=== PATIENT | male | born 1965 | race Caucasian/White ===

== ENCOUNTER 2016-09-09 08:08 | Outpatient (CLI) | payer BC ==
[2016-09-09 09:22] LABS: eGFR (African) > 60; eGFR (Non-African) > 60
--- NOTE | 2016-09-09 14:28 | Diagnostic Imaging Report ---
[facility] [address] [facility].[address] [address] Report Submission Date: Sep 09, 2016 10:24:24 AM CDT Patient Study Name: SAHIL OCLEY Date: Sep 09, 2016 8:19:47 AM CDT Modality Type: US Gender: M Description: DPLX SCN XTRCRAN ART CMP NICHOLAS : 65 Institution: [facility] Physician JON LUONG Ultrasound carotid Doppler HISTORY: Carotid bruit, hypertension, hyperlipidemia FINDINGS: Spectral Doppler sonography of the carotid and vertebral arteries is performed. On the right there is antegrade carotid and vertebral artery flow without visibly significant carotid atheromatous plaque. Doppler waveforms are normal in the right carotid and vertebral arteries. On the left there is also antegrade carotid and vertebral artery flow without visibly significant carotid plaque. Doppler waveforms are normal. Peak systolic velocities in the internal carotid arteries are 66 centimeters/ second right and 64 left. Peak common carotid artery systolic velocities are 116 centimeters/second right and 107 left. Internal to common carotid artery ratios are 0.6 right and left. IMPRESSION: Using the 2003 radiologists in ultrasound consensus Conference criteria, there is no evidence of carotid stenosis. Antegrade vertebral artery flow. Electronically signed on Sep 09, 2016 10:24:24 AM CDT by: Magdiel ARMENTA
== END 2016-09-09 08:10 ==
LOC: RAD 08:08
PROVIDERS: ATTEND Family Medicine
DX: E78.5 Hyperlipidemia, unspecified (principal); R09.89 Other specified symptoms and signs involving the circulatory and respiratory systems
CPT/HCPCS: 36415; 80053; 80061; 93880

== ENCOUNTER 2018-06-21 20:08 | Emergency (ER) | payer BC ==
--- NOTE | 2018-06-21 21:38 | ED Physician Documentation ---
General Adult - HISTORIAN Historian: patient - HPI Stated Complaint: High Blood Pressure- Anxiety Chief Complaint: General Adult Additional Information: Patient is a 52-year-old male that arrives to ER with his with c/o high b lood pressure and anxiety. Patient states he use to be treated for hypertension but he quit taking his medication because he did not like the way it made him feel. When he switched providers his blood pressures had been WNL so he was not put back on them. Over the last week he has felt some anxiety at work- he states that he is able to control it on his own by breathing and talking to himself in the mirror. Patient and his were at [facility] this evening and he checked his blood pressure and it read > 150s/ >100 diastolic. states that pt became very anxious and kept checking blood pressure every couple of minutes and does the same thing at home. On arrival patients blood pressure was normal and his anxiety was gone. Educated patient to only check blood pressure once a day- keep a log- and schedule appointment with PCP next week (take log and blood pressure cuff to appointment). Onset: hours Timing: better Severity: mild Modifying Factors: anxiety and repetitive blood pressure checking - ROS CONST: no problems EYES/ENT: none CVS/RESP: none GI/: none MS/SKIN/LYMPH: leg swelling (stands all day at [facility]- improves at night when legs are elevated) NEURO/PSYCH: anxiety. denies: headache, dizziness, difficulty walking, difficulty with speech - PAST HX Past History: hypertension (has been stable without medications) Other History: none Surgeries/Procedures: other (tubes in ears as a child) Immunizations: UTD Allergies/Adverse Reactions: Allergies Allergy/AdvReac Type Severity Reaction Status Date / Time nalbuphine HCl [From Nubain] Allergy Verified 06/21/18 21:31 Penicillins Allergy Verified 06/21/18 21:31 - SOCIAL HX Smoking History: non-smoker Alcohol Use: none Drug Use: none - FAMILY HX Family History: No - REVIEWED ASSESSMENTS Nursing Assessment Reviewed: Yes Vitals Reviewed: Yes Progress - Progress Progress: Once pt arrived and saw that blood pressure was normal he felt better. He states he lets his anxiety get the best of him sometimes. He has no other complaints- he denies any chest pain, shortness of breath, weakness, or episodes of slurred speech. - EKG/XRAY/CT EKG: NSR ED Results Lab/Radiology - Orders Orders: ED Orders Category Date Time Status EKG WITH COMPARISON Stat Ther 06/21/18 Ordered General Adult Physical Exam - PHYSICAL EXAM GENERAL APPEARANCE: mild distress (Much improved when he saw BP was normal) EENT: eye inspection normal, ENT inspection normal, DANIAL NECK: normal inspection. No: carotid bruit RESPIRATORY: no resp distress, chest non-tender, breath sounds normal CVS: reg rate & rhythm, heart sounds normal, equal pulses, no murmur ABDOMEN: soft, normal bowel sounds, non-tender SKIN: warm/dry (atopic dermatitis to right AC- recommended hydrocortisone cream) EXTREMITIES: non-tender, normal range of motion, other (had a bump to the right gao from dropping a gallon of milk on leg- no discoloration) NEURO: oriented X3, CN's nml as tested, motor nml, sensation nml, mood/affect nml Discharge Clincal Impression: Anxiety about health Referrals: Juan River MD [Primary Care Provider] - 2 Days Additional Instructions: Take blood pressure ONCE a day- keep a log- take to doctor appointment with blood pressure device Consider seeing someone about anxiety- discussed yoga and meditation (they were very interested) Patient asked about scheduling appointment with me- told him to call clinic in the morning and set up appointment with me this week or next Condition: Good Disposition: 01 HOME, SELF-CARE Decision to Admit: NO Decision Time: 21:46
[2018-06-21 21:46] VITALS: BP 118/89
== END 2018-06-21 21:40 | disposition home or self-care (01) ==
LOC: ED 20:08
DX: F41.1 Generalized anxiety disorder (principal)
CPT/HCPCS: 99282; 99283